=== PATIENT | female | born 1990 | race Hispanic/Latino ===

== ENCOUNTER 2017-02-16 10:27 | Emergency (ER) | payer OTHER ==
[2017-02-16 10:32] VITALS: BP 118/59; PULSE 62; TEMP 97; O2SAT 100
[2017-02-16 10:33] VITALS: BMI 27.8
--- NOTE | 2017-02-16 12:51 | CT ---
PROCEDURE: CT HEAD WITHOUT CONTRAST. HISTORY: acute head injury with [place] dizziness COMPARISON: None available. TECHNIQUE: Axial computed tomography images were obtained through the head/brain without intravenous contrast. Radiation dose: Total exam DLP = mGy-cm. This CT exam was performed using one or more of the following dose reduction techniques: Automated exposure control, adjustment of the mA and/or kV according to patient size, and/or use of iterative reconstruction technique. FINDINGS: HEMORRHAGE: No intracranial hemorrhage. BRAIN: No mass effect or edema. No atrophy or chronic microvascular ischemic changes. VENTRICLES: Unremarkable. No hydrocephalus. CALVARIUM: Unremarkable. PARANASAL SINUSES: Opacification of the right maxillary sinus. MASTOID AIR CELLS: Unremarkable as visualized. No inflammatory changes. OTHER FINDINGS: None. IMPRESSION: Opacification of the right maxillary sinus. No intracranial hemorrhage.
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
== END 2017-02-16 13:54 | disposition home or self-care (01) ==
LOC: H.ER 10:27
DX: F07.81 Postconcussional syndrome (principal); F41.9 Anxiety disorder, unspecified